=== PATIENT | female | born 1995 | race Hispanic/Latino ===

== ENCOUNTER 2016-11-06 10:21 | Emergency (ER) | payer OTHER ==
[~2016-11-06] VITALS: Ht 165.1 cm; Wt 98.3 kg
[2016-11-06 10:22] VITALS: BP 152/76
[2016-11-06] MEDS ORDERED: PRE-TAB3 PO (10:45)
[2016-11-06] MEDS ORDERED: CLEO300C2 PO (11:21)
[2016-11-06] MEDS ORDERED: CLINDAMYCIN 150 MG CAP PO ONE (11:30)
[2016-11-06] MEDS ORDERED: IBUPROFEN 600 MG TAB PO ONE (11:30)
== END 2016-11-06 11:31 | disposition home or self-care (01) ==
LOC: M ED 11:20
DX: H65.192 Other acute nonsuppurative otitis media, left ear (principal)

== ENCOUNTER → 2017-06-11 | Outpatient (REF) | payer OTHER ==
[2017-06-11 21:50] LABS: APPEARANCE, URINE TURBID (CLEAR); BACTERIA, URINE AUTO 3+ (NEGATIVE); BILIRUBIN, URINE AUTO NEGATIVE (NEGATIVE); BLOOD, URINE BLOOD 3+ (NEGATIVE); COLOR, URINE YELLOW (YELLOW); GLUCOSE, URINE (UA) AUTO NEGATIVE (NEGATIVE); KETONE, URINE AUTO NEGATIVE (NEGATIVE); LEUKOCYTE ESTERASE, URINE AUTO 3+ (NEGATIVE); NITRITE, URINE AUTO NEGATIVE (NEGATIVE); PROTEIN, URINE AUTO 2+ mg/dL (NEGATIVE); RBC, URINE AUTO TNTC /HPF (0-3); SQUAMOUS EPITHELIAL CELL UR AU 12 /HPF (0-6); UROBILINOGEN, URINE AUTO 0.2 mg/dL (0.0-2.0); WBC, URINE AUTO TNTC /HPF (0-3)
[2017-06-12 00:50] LABS: CHLAMYDIA DNA AMPLIFICATION POSITIVE (NEGATIVE); GC DNA AMPLIFICATION NEGATIVE (NEGATIVE)
== END ==
LOC: M LAB REF 06-12 09:24
DX: N39.0 Urinary tract infection, site not specified (principal)
CPT/HCPCS: 81001

== ENCOUNTER → 2017-06-12 | Outpatient (CLI) | payer OTHER | LOC: M LRY 15:05 | DX: R10.9 Unspecified abdominal pain (principal) | CPT/HCPCS: 74018; G0463 ==

== ENCOUNTER 2017-06-25 11:30 | Emergency (ER) | payer OTHER ==
[2017-06-25] MEDS: cefTRIAXone SOD 250 MG VIAL (J0696) IM (12:42)
[2017-06-25] MEDS: DOXYCYCLINE HYCLATE 100 MG TAB PO (12:42)
== END 2017-06-25 13:11 | disposition home or self-care (01) ==
LOC: M ED 11:30
DX: Z20.2 Contact with and (suspected) exposure to infections with a predominantly sexual mode of transmission (principal); Z88.0 Allergy status to penicillin
CPT/HCPCS: J0696

== ENCOUNTER → 2017-06-25 | Outpatient (CLI) | payer OTHER | LOC: M LAB 15:48 | DX: Z20.2 Contact with and (suspected) exposure to infections with a predominantly sexual mode of transmission (principal) ==

== ENCOUNTER → 2017-08-08 | Outpatient (REF) | payer OTHER ==
[2017-08-08 14:00] LABS: APPEARANCE, URINE CLOUDY (CLEAR); BACTERIA, URINE AUTO 1+ (NEGATIVE); BILIRUBIN, URINE AUTO NEGATIVE (NEGATIVE); BLOOD, URINE BLOOD NEGATIVE (NEGATIVE); COLOR, URINE YELLOW (YELLOW); GLUCOSE, URINE (UA) AUTO NEGATIVE (NEGATIVE); KETONE, URINE AUTO NEGATIVE (NEGATIVE); LEUKOCYTE ESTERASE, URINE AUTO 1+ (NEGATIVE); MUCUS, URINE SMALL (NEGATIVE); NITRITE, URINE AUTO NEGATIVE (NEGATIVE); PROTEIN, URINE AUTO NEGATIVE (NEGATIVE); RBC, URINE AUTO 1 /HPF (0-3); SPECIFIC GRAVITY URINE AUTO 1.013 (1.002-1.035); SQUAMOUS EPITHELIAL CELL UR AU 17 /HPF (0-6); UROBILINOGEN, URINE AUTO 0.2 mg/dL (0.0-2.0); WBC, URINE AUTO 6 /HPF (0-3)
[2017-08-08 15:19] LABS: CHLAMYDIA DNA AMPLIFICATION NEGATIVE (NEGATIVE); GC DNA AMPLIFICATION NEGATIVE (NEGATIVE)
== END ==
LOC: M LAB REF 12:35
DX: N39.0 Urinary tract infection, site not specified (principal)

== ENCOUNTER 2017-09-20 09:56 | Emergency (ER) | payer OTHER ==
[2017-09-20 13:14] LABS: CHLAMYDIA DNA AMPLIFICATION NEGATIVE (NEGATIVE); GC DNA AMPLIFICATION NEGATIVE (NEGATIVE)
== END 2017-09-20 11:09 | disposition home or self-care (01) ==
LOC: M ED 09:56
DX: R21 Rash and other nonspecific skin eruption (principal); Z88.0 Allergy status to penicillin
CPT/HCPCS: 86780

== ENCOUNTER → 2017-09-23 | Outpatient (CLI) | payer OTHER ==
[~2017-09-23] MED LIST: ISOVUE-370 76% 100ML VIAL (Q9967) As Ordered
== END ==
LOC: M RADPRO 10:02
DX: N97.9 Female infertility, unspecified (principal); Z53.8 Procedure and treatment not carried out for other reasons

== ENCOUNTER 2017-11-01 08:52 | Day surgery (SDC) | payer OTHER ==
[2017-11-01] MEDS ORDERED: LIDOCAINE 1% MDV 20ML VIAL SQ (09:00)
[2017-11-01 09:27] LABS: HEMATOCRIT 38.7 % (36.0-47.0); HEMOGLOBIN 13.2 g/dl (12.0-15.5); MEAN CORPUSCULAR HEMOGLOBIN 29.1 pg (27.0-33.0); MEAN CORPUSCULAR HGB CONC 34.1 g/dl (32.0-36.5); MEAN CORPUSCULAR VOLUME 85.2 fl (80.0-96.0); PLATELET COUNT, AUTOMATED 259 10^3/uL (150-450); RED BLOOD COUNT 4.54 10^6/uL (4.00-5.40); RED CELL DISTRIBUTION WIDTH 11.7 % (11.5-14.5); WHITE BLOOD COUNT 4.9 10^3/uL (4.0-10.0)
[2017-11-01] MEDS: LR 1,000 ML IV (09:44)
[2017-11-01 09:49] LABS: HCG, SERUM QUANTITATIVE < 1.0 MIU/ML
[2017-11-01] MEDS ORDERED: PROPOFOL 200 MG/20 ML VIAL As Ordered (10:02)
[2017-11-01] MEDS ORDERED: MIDAZOLAM INJ 2 MG/2 ML VIAL (J2250) As Ordered (10:02)
[2017-11-01] MEDS ORDERED: fentaNYL 100 MCG/2 ML INJECTION (J3010) As Ordered ×3 (10:02→13:53)
[2017-11-01] MEDS ORDERED: ROCURONIUM BROMIDE 50 MG/5 ML VIAL As Ordered (10:02)
[2017-11-01] MEDS ORDERED: LIDOCAINE 2% INJ 100 MG/5 ML SDV (FOR ANES.) As Ordered (10:02)
[2017-11-01] MEDS ORDERED: GLYCOPYRROLATE INJ 0.2 MG/ML 2 ML VIAL As Ordered (10:22)
[2017-11-01] MEDS ORDERED: ONDANSETRON 4MG/2ML VIAL (J2405) As Ordered (10:22)
[2017-11-01] MEDS ORDERED: NEOSTIGMINE 10 MG/10 ML VIAL (J2710) As Ordered (10:22)
[2017-11-01] MEDS ORDERED: dexameTHASONE 4 MG/ML 1ML VIAL (J1100) As Ordered ×2 (10:22)
[2017-11-01] MEDS ORDERED: METOCLOPRAMIDE INJ 10MG/2ML VIAL (J2765) As Ordered (10:42)
[2017-11-01] MEDS ORDERED: ePHEDrine SULFATE 25 MG/5 ML(5MG/ML) SYRINGE As Ordered (11:13)
[2017-11-01] MEDS ORDERED: KETOROLAC 60 MG/2 ML VIAL (J1885) As Ordered (13:56)
[2017-11-01] MEDS: BUPIVACAINE HCL 0.25% 30 ML VIAL As Ordered (14:11)
[2017-11-01] MEDS: METHYLENE BLUE 0.5% (5MG/ML) 10 ML AMP (PROVAYBLUE)(Q9968 PER 1MG) As Ordered (14:12)
[2017-11-01] MEDS ORDERED: LR 1,000 ML IV (14:45)
[2017-11-01] MEDS ORDERED: ONDANSETRON 4MG/2ML VIAL (J2405) IV (14:45)
[2017-11-01] MEDS ORDERED: MORPHINE 4 MG/ML 1ML VIAL/SYRINGE (J2270) IV (14:45)
[2017-11-01] MEDS ORDERED: fentaNYL 100 MCG/2 ML INJECTION (J3010) IV (14:45)
[2017-11-01] MEDS: PERCOCET 5MG/325MG TAB PO ×2 (14:55→15:25)
[2017-11-01] MEDS: ONDANSETRON 4MG/2ML VIAL (J2405) IV (16:27)
[2017-11-01] MEDS ORDERED: KETOROLAC 30 MG/ML VIAL (J1885) IV (20:15)
== END 2017-11-01 18:30 | disposition home or self-care (01) ==
LOC: M SDC 08:52
DX: N97.9 Female infertility, unspecified (principal); E28.2 Polycystic ovarian syndrome; E66.9 Obesity, unspecified
CPT/HCPCS: 58350

== ENCOUNTER → 2017-11-29 | Outpatient (REF) | payer OTHER | LOC: M SFHCLERA 16:51 | DX: R30.0 Dysuria (principal) ==

== ENCOUNTER 2018-01-22 12:04 | Emergency (ER) | payer OTHER ==
[2018-01-22 12:43] LABS: KETONE, URINE AUTO RFX TRACE mg/dL (NEGATIVE); LEUKOCYTE ESTERASE UR AUTO RFX 3+ (NEGATIVE); MUCUS, URINE RFX SMALL (NEGATIVE); NITRITE, URINE AUTO RFX NEGATIVE (NEGATIVE); RBC, URINE AUTO RFX TNTC /HPF (0-3); SQUAM EPITHELIAL CELL UR AURFX 3 /HPF (0-6); TRANSITIONAL EPITHELIAL AU RFX 1 /HPF; WBC, URINE AUTO RFX TNTC /HPF (0-3)
[2018-01-22] MEDS: NITROFURANTOIN (MACROBID) 100 MG CAP PO (12:55)
[2018-01-22] MEDS: ACETAMINOPHEN 325 MG TAB PO (12:55)
[2018-01-22 12:59] LABS: BASO % 0.2 % (0.0-1.0); EOS # 0.2 10^3/uL (0.0-0.50); HEMATOCRIT 39.4 % (36.0-47.0); HEMOGLOBIN 13.5 g/dl (12.0-15.5); IMMATURE GRANULOCYTE % 0.5 % (0-3.0); LYMPH # 3.1 10^3/uL (1.5-6.5); LYMPH % 18.9 % (24.0-44.0); MEAN CORPUSCULAR HEMOGLOBIN 29.8 pg (27.0-33.0); MEAN CORPUSCULAR HGB CONC 34.3 g/dl (32.0-36.5); MONO # 0.8 10^3/uL (0.0-0.8); MONO % 5.1 % (0.0-5.0); NEUTROPHILS # 12.1 10^3/uL (1.8-7.7); NEUTROPHILS % 74.3 % (36.0-66.0); PLATELET COUNT, AUTOMATED 294 10^3/uL (150-450); RED BLOOD COUNT 4.53 10^6/uL (4.00-5.40); RED CELL DISTRIBUTION WIDTH 12.4 % (11.5-14.5); WHITE BLOOD COUNT 16.2 10^3/uL (4.0-10.0)
[2018-01-22 13:40] LABS: HCG, SERUM QUANTITATIVE 7298 MIU/ML
== END 2018-01-22 14:30 | disposition home or self-care (01) ==
LOC: M ED 12:04
DX: O20.0 Threatened abortion (principal); O23.40 Unspecified infection of urinary tract in pregnancy, unspecified trimester; Z3A.01 Less than 8 weeks gestation of pregnancy; Z79.899 Other long term (current) drug therapy; Z88.0 Allergy status to penicillin
CPT/HCPCS: 76801

== ENCOUNTER → 2018-01-25 | Outpatient (CLI) | payer OTHER | LOC: M RAD 09:30 | DX: O20.8 Other hemorrhage in early pregnancy (principal); Z3A.01 Less than 8 weeks gestation of pregnancy; N83.201 Unspecified ovarian cyst, right side; O34.81 Maternal care for other abnormalities of pelvic organs, first trimester | CPT/HCPCS: 76801 ==

== ENCOUNTER 2018-07-13 11:03 | Emergency (ER) | payer OTHER ==
[~2018-07-13] VITALS: Ht 165.1 cm; Wt 97.3 kg
[~2018-07-13 11:03] MED LIST changes: +ACET1TAB55; +CLEO300C2 PO; +COQ1200C2 PO; +DOXY100C37 PO; +HYDR25OI TOP; -ISOVUE-370 76% 100ML VIAL (Q9967) As Ordered; +MACR100C43 PO; +METF500T4; +OMEG1CAP16 PO; +PRE-TAB3 PO; +PRED5TA; +PREN1CHW6 PO; +VITA100067 PO
[2018-07-13] MEDS ORDERED: FAMOTIDINE 20 MG TAB PO ONE (12:30)
[2018-07-13] MEDS ORDERED: diphenhydrAMINE 25 MG CAP PO ONE (12:30)
[2018-07-13] MEDS ORDERED: BENA25CA4 PO (12:40)
[2018-07-13] MEDS ORDERED: PEPC1TAB5 PO (12:40)
[2018-07-13 12:44] VITALS: BP 100/63
== END 2018-07-13 12:48 | disposition home or self-care (01) ==
LOC: M ED 11:03
DX: O99.89 Other specified diseases and conditions complicating pregnancy, childbirth and the puerperium (principal); L50.9 Urticaria, unspecified; Z3A.30 30 weeks gestation of pregnancy; Z79.899 Other long term (current) drug therapy; Z88.0 Allergy status to penicillin

== ENCOUNTER 2018-08-28 08:07 | Outpatient (CLI) | payer OTHER ==
[~2018-08-28] VITALS: Ht 165.1 cm; Wt 102.0 kg
[~2018-08-28 08:07] MED LIST changes: +BENA25CA4 PO; +PEPC1TAB5 PO
[2018-08-28 08:23] VITALS: BP 127/61
[2018-08-28 08:38] VITALS: BP 129/67
[2018-08-28 09:13] VITALS: BP 122/60
--- NOTE | 2018-08-28 09:38 | IPNPDOC ---
Text Note Date of Service The patient was seen on 08/28/18. NOTE 23 yo at 37+0 weeks presented to L+D with the complaint of vaginal spotting/bleeding after having intercourse at 0500 this AM. She denies any leakage of fluid. She also reports feeling intermittent contractions but nothing too significant. She initially wasn't feeling her baby move as much as usual this AM but while in triage she reported significant movement. Chaperoned by L&D RN Vitals - VSS, afebrile, normotensive, non tachycardic General - AAOX3, laying in bed, NAD Abdomen - Gravid uterus. No fundal tenderness. Pelvic exam - Speculum placed into the vagina. Scant brown blood in vaginal vault. No active bleeding. Cervix visualized and normal in appearance. No bleeding from cervix and no trauma. Cervix - 50/-3. Posterior Bedside TAUS - SIUP in cephalic presentation. HARSHAL 9.2cm. +gross movement. FHR tracing - Reactive NST, moderate variability, +accels, no decels. Suspect spotting and blood related to intercourse this AM. No active bleeding on exam. No evidence of active labor and cervix 1cm. No evidence of ruptured membranes. Reassuring status. Patient felt a lot of movement in triage and was reassured. Counseled patient she may continue to have discharge and cramping over next several hours or days. She is to return to care for worsening painful ctx, bleeding that soaks through multiple pads, leakage of fluid, or decreased movement. All patient questions answered. DO DEBRA Bingham Fishbone, I+O Ghazala RICHARDSON, I+O Vital Signs Date Time Temp Pulse Resp B/P (MAP) Pulse Ox O2 Delivery O2 Flow Rate FiO2 08/28/18 08:23 98.3 100 18 127/61 (83) JENA BINGHAM DO Aug 28, 2018 09:19
== END 2018-08-28 09:28 | disposition home or self-care (01) ==
LOC: M LDO 08:07
PROVIDERS: ATTEND Obstetrics & Gynecology
DX: O36.8130 Decreased fetal movements, third trimester, not applicable or unspecified (principal); O26.853 Spotting complicating pregnancy, third trimester; O47.1 False labor at or after 37 completed weeks of gestation; Z3A.37 37 weeks gestation of pregnancy
CPT/HCPCS: 59025; 76815; G0378; G0463

== ENCOUNTER 2018-09-07 08:14 | Inpatient (IN) | payer OTHER ==
[2018-09-07] VITALS (12 sets, daily range): BP systolic 116–149; BP diastolic 56–82
[~2018-09-07] VITALS: Ht 165.1 cm; Wt 101.3 kg
[2018-09-07] MEDS ORDERED: LACTATED RINGER'S 1000 ML IV STA (08:51)
[2018-09-07 09:03] LABS: BASO % 0.2 % (0.0-1.0); EOS # 0.1 10^3/uL (0.0-0.50); EOS % 0.8 % (0.0-3.0); HEMATOCRIT 41.9 % (36.0-47.0); HEMOGLOBIN 14.4 g/dl (12.0-15.5); LYMPH # 1.7 10^3/uL (1.5-6.5); MEAN CORPUSCULAR HEMOGLOBIN 30.6 pg (27.0-33.0); MEAN CORPUSCULAR HGB CONC 34.4 g/dl (32.0-36.5); MONO # 0.7 10^3/uL (0.0-0.8); MONO % 7.3 % (0.0-5.0); NEUTROPHILS # 7.2 10^3/uL (1.8-7.7); PLATELET COUNT, AUTOMATED 195 10^3/uL (150-450); RED BLOOD COUNT 4.71 10^6/uL (4.00-5.40); WHITE BLOOD COUNT 9.7 10^3/uL (4.0-10.0)
[2018-09-07] MEDS ORDERED: FENTANYL 2MCG/ML ROPIVACAINE 0.2% IN 0.9% NACL 100ML IVBAG As Ordered ONE (09:20)
[2018-09-07] MEDS ORDERED: OXYTOCIN 30 UNITS IN 0.9% NaCl 500ML IV BAG (J2590) As Ordered ONE ×2 (09:20→10:22)
[2018-09-07] MEDS: OXYTOCIN DRIP 30 UNITS in APPROPRIATE DILUENT 1 EA IV SCH ×2 (09:40→10:24)
[2018-09-07] MEDS ORDERED: MEASLES,MUMPS,RUBELLA VACCINE INJ (MMR-II) (90707) SC SCH (10:00)
[2018-09-07] MEDS ORDERED: METHYLERGONOVINE MALEATE 0.2 MG TAB PO PRN (10:00)
[2018-09-07] MEDS ORDERED: DOCUSATE SODIUM 100 MG CAP PO PRN (10:00)
[2018-09-07] MEDS ORDERED: ACETAMINOPHEN 500 MG TAB PO PRN (10:00)
[2018-09-07] MEDS ORDERED: ONDANSETRON 4MG/2ML VIAL (J2405) IV PRN (10:00)
[2018-09-07] MEDS ORDERED: DIBUCAINE 1% OINTMENT 30GM TOP PRN (10:00)
--- NOTE | 2018-09-07 10:03 | NUR ---
[facility] L&D Delivery Note: Received call in clinic from nursing staff. Reported precipitous delivery and on-call provider delivering another patient. RN reported baby delivered and care managed by Ms. Lakeisha Reich, RN; requesting provider to bedside. When I entered the room. Mom/babe were in stable condition bonding. Active management of the 3rd stage by CNM. With gentle traction on 3Vcord, placenta delivered intact Seamus and was complete and intact on inspection. Oxytocin bolus via IV and FF @U-3;w/ small rubra lochia. Vagina, perineum, and cervix inspected for lacerations. None present. Counts completed and correct x2. Mom/babe in stable condition upon leaving the room. DEL: 0931 PLACENTA: 0940 APGARS: 7/9 WT: 3340 EBL: 300 ANESTHESIA: None
[2018-09-07] MEDS ORDERED: METHYLERGONOVINE MALEATE 0.2 MG/ML VIAL (J2210) As Ordered ONE (10:29)
[2018-09-07] MEDS ORDERED: METHYLERGONOVINE MALEATE 0.2 MG/ML VIAL (J2210) IM ONE (10:30)
[2018-09-07] MEDS ORDERED: OXYTOCIN DRIP 30 UNITS in APPROPRIATE DILUENT 1 EA IV ONE (10:45)
--- NOTE | 2018-09-07 11:29 | IPNPDOC ---
Text Note Date of Service The patient was seen on 09/07/18. NOTE Called to room for persistent oozing bleeding after delivery. I had previously ordered another bag of pitocin and 0.2mg IM metherine. Pelvic exam revealed no vaginal, perineal, or labial lacerations. Cervix inspected with speculum and intact without lacerations. Fundus firm. Uterine sweep performed productive of ~200ml of blood and clots. Bedside TAUS revealed a thin EMS without any evidence of retained products. Will give ancef for uterine sweep. Patient stable with now normal lochia. Continue to monitor. DO Zachery VS,Ghazala, I+O VS, Ghazala, I+O Laboratory Tests 09/07/18 08:32 Red Blood Count 4.71, Mean Corpuscular Volume 89.0, Mean Corpuscular Hemoglobin 30.6, Mean Corpuscular Hemoglobin Concent 34.4, Red Cell Distribution Width 13.1, Neutrophils (%) (Auto) 74.0 H, Lymphocytes (%) (Auto) 17.0 L, Monocytes (%) (Auto) 7.3 H, Eosinophils (%) (Auto) 0.8, Basophils (%) (Auto) 0.2, Neutrophils # (Auto) 7.2, Lymphocytes # (Auto) 1.7, Monocytes # (Auto) 0.7, Eosinophils # (Auto) 0.1, Basophils # (Auto) 0.0 Vital Signs Date Time Temp Pulse Resp B/P (MAP) Pulse Ox O2 Delivery O2 Flow Rate FiO2 09/07/18 10:36 75 18 118/59 (78) 09/07/18 08:26 98.6 JENA HANKINS DO Sep 07, 2018 11:29
--- NOTE | 2018-09-07 14:44 | HPEPDOC ---
Obstetrical History & Physical General Date of Admission Sep 07, 2018 at 08:55 History of Present Illness 23 yo at 38+3 weeks gestation presented to L&D in active labor. No leakage of fluid or bleeding. Excellent movement. complicated by obesity (BMI 37) and GDMA1, with good control. Chief Complaint: Contractions, term Information Provided By: Patient Age: 23 : 2 Term: 1 Pre-term: 0 Abortions: 0 Livin Care Care: Good Care Dating Final EDC: Sep 18, 2018 Final EDC for Daily Update: Sep 18, 2018 (by LMP of [id number] c/w 9+2 week US on [id number]) LMP: Dec 12, 2017 Antepartum Course Diagnos(e)s GDMA1 Obesity Past Medical History Past Obstetrical History : Past Obstetrical History: Multigravida Type of Delivery: Spontaneous Vaginal Del. (term in 2010) Complications: No CABINET MOUNTER History: History of STD (chlamydia X2) Past Medical History Medical History Obesity PCOS Surgical History: Diagnostic laparoscopy, [place] teeth Family History Family History Noncontributory Social History Marital Status: Family situation: Spouse/partner home Psychosocial History: No pertinent psych hx * Smoker: non-smoker Alcohol: Denies Drugs: denies Imunizations Tdap status: current Influenza Status: current Allergies Coded Allergies: Penicillins (Verified Allergy, Mild, RASH, 09/07/18) Medications Scheduled Multivitamins/ (Prenata 29-1 mg) 1 Chw Chw, 1 CHW PO DAILY Physical Examination Physical Examination GENERAL: Alert and oriented times three. ABDOMEN: Gravid and non-tender to touch. FETUS: Is vertex (VTX) by sterile vaginal examination (SVE), EXTREMITIES: No edema. Vital Signs/I&O Vital Signs Date Time Temp Pulse Resp B/P (MAP) Pulse Ox O2 Delivery O2 Flow Rate FiO2 09/07/18 13:30 98.7 111 20 130/69 (89) Laboratory Data 24H LABS Laboratory Tests 2 09/07/18 08:32: Immature Granulocyte % (Auto) 0.7, White Blood Count 9.7, Red Blood Count 4.71, Hemoglobin 14.4, Hematocrit 41.9, Mean Corpuscular Volume 89.0, Mean Corpuscular Hemoglobin 30.6, Mean Corpuscular Hemoglobin Concent 34.4, Red Cell Distribution Width 13.1, Platelet Count 195, Neutrophils (%) (Auto) 74.0H, Lymphocytes (%) (Auto) 17.0L, Monocytes (%) (Auto) 7.3H, Eosinophils (%) (Auto) 0.8, Basophils (%) (Auto) 0.2, Neutrophils # (Auto) 7.2, Lymphocytes # (Auto) 1.7, Monocytes # (Auto) 0.7, Eosinophils # (Auto) 0.1, Basophils # (Auto) 0.0, Nucleated Red Blood Cells % (auto) 0.0 09/07/18 08:59: Serology Scanned Report Hepatitis B Testing 09/07/18 09:06: Bedside Glucose (Misc Panel) 81 CBC/BMP Laboratory Tests 09/07/18 08:32 Red Blood Count 4.71, Mean Corpuscular Volume 89.0, Mean Corpuscular Hemoglobin 30.6, Mean Corpuscular Hemoglobin Concent 34.4, Red Cell Distribution Width 13.1, Neutrophils (%) (Auto) 74.0 H, Lymphocytes (%) (Auto) 17.0 L, Monocytes (%) (Auto) 7.3 H, Eosinophils (%) (Auto) 0.8, Basophils (%) (Auto) 0.2, Neutrophils # (Auto) 7.2, Lymphocytes # (Auto) 1.7, Monocytes # (Auto) 0.7, Eosinophils # (Auto) 0.1, Basophils # (Auto) 0.0 Urine Culture: No Growth Pertinent Laboratoy Data Blood Type: B+ RBC Antibody Screen: Negative HIV: Negative Hepatitis B: Negative Hepatitis C: Unknown Rapid Plasma Reagin: Nonreactive Rubella: Immune Varicella: Immune Chlamydia/Gonorrhea: Negative Group B Streptococcus: Negative Quad Screen Test: Unknown Cystic Fibrosis: Negative Glucose Tolerance Test: 147 Anatomy Ultrasound Placenta Location: Right Lateral Normal Anatomy: No Placenta Previa: No Steroid Therapy Steroid Therapy: No Vaginal Examination Dilation: 6 cm Effacement: 100% Station: 0 Cervical Consistency: Soft Cervical Position: Anterior Presentation: Cephalic presentation Position: Vertex (occiput) Assessment Heart Rate (FHR): 130 Variability: Moderate Accelerations: Positive Decelerations: None Tocometer Contractions: Yes Frequency: regular Duration: greater than 60 seconds Strength: palpated as strong Assessment/Plan Assessment 23 yo presented in active labor at 38+3 weeks. Delivered precipitously while I was delivering a different patient in another room. CNM MAJ Armendariz attended 3rd stage of delivery and reported no complications. Plan Routine care now that she is s/p precipitous delivery. Much appreciate MAJ Armendariz's quick arrival to attend 3rd stage of delivery. DO CR Bingham CHRISTOPHER J. DO Sep 07, 2018 14:44
[2018-09-07] MEDS: IBUPROFEN 800 MG TAB PO PRN (17:54)
[2018-09-08 06:16] VITALS: BP 117/59
--- NOTE | 2018-09-08 07:29 | DS.PDOC ---
Discharge Summary General Date of Admission Sep 07, 2018 at 08:55 Date of Discharge Sep 08, 2018 Discharge Summary HOSPITAL COURSE: Ms. Foreman is a 23 yo G2 now P2 who underwent an uncomplicated on 07Sep2018 after being admitted for active labor. She required a uterine sweep for some retained clots and received a dose of ancef. Otherwise her course has been unremarkable. On her day of discharge she met all appropriate discharge criteria. She was ambulating, voiding, tolerating a regular diet, and her pain was well controlled, and she had minimal lochia. DISCHARGE MEDICATIONS: Please see below. ALLERGIES: Please see below. PHYSICAL EXAMINATION ON DISCHARGE: VITAL SIGNS: Please see below. GENERAL: AAOX3, sitting up in bed, NAD ABDOMINAL EXAMINATION: Fundus firm at U-2. No fundal tenderness. EXTREMITIES: No edema PSYCHIATRIC EXAMINATION: Affect appropriate LABORATORY DATA: Please see below. ACTIVITY: Pelvic rest. DIET: Regular DISCHARGE PLAN: Discharge DISPOSITION: discharge to home on 08Sep2018. DISCHARGE INSTRUCTIONS: 1. Pelvic rest for 6 weeks. ITEMS TO FOLLOWUP ON ON OUTPATIENT: 1. appointment in 6-8 weeks. DISCHARGE CONDITION: Stable. TIME SPENT ON DISCHARGE: Greater than 20 minutes. Jena Bingham, Vital Signs/I&Os Vital Signs Date Time Temp Pulse Resp B/P (MAP) Pulse Ox O2 Delivery O2 Flow Rate FiO2 09/08/18 06:16 98.8 84 18 117/59 (78) 09/07/18 18:00 97 I&O- Last 24 Hours up to 6 AM 09/08/18 06:00 Intake Total 1737 ml Output Total 900 ml Balance 837 ml Laboratory Data Labs 24H Laboratory Tests 2 09/07/18 08:32: Immature Granulocyte % (Auto) 0.7, White Blood Count 9.7, Red Blood Count 4.71, Hemoglobin 14.4, Hematocrit 41.9, Mean Corpuscular Volume 89.0, Mean Corpuscular Hemoglobin 30.6, Mean Corpuscular Hemoglobin Concent 34.4, Red Cell Distribution Width 13.1, Platelet Count 195, Neutrophils (%) (Auto) 74.0H, Lymphocytes (%) (Auto) 17.0L, Monocytes (%) (Auto) 7.3H, Eosinophils (%) (Auto) 0.8, Basophils (%) (Auto) 0.2, Neutrophils # (Auto) 7.2, Lymphocytes # (Auto) 1.7, Monocytes # (Auto) 0.7, Eosinophils # (Auto) 0.1, Basophils # (Auto) 0.0, Nucleated Red Blood Cells % (auto) 0.0 09/07/18 08:59: Serology Scanned Report Hepatitis B Testing 09/07/18 09:06: Bedside Glucose (Misc Panel) 81 CBC/BMP Laboratory Tests 09/07/18 08:32 Red Blood Count 4.71, Mean Corpuscular Volume 89.0, Mean Corpuscular Hemoglobin 30.6, Mean Corpuscular Hemoglobin Concent 34.4, Red Cell Distribution Width 13.1, Neutrophils (%) (Auto) 74.0 H, Lymphocytes (%) (Auto) 17.0 L, Monocytes (%) (Auto) 7.3 H, Eosinophils (%) (Auto) 0.8, Basophils (%) (Auto) 0.2, Neutrophils # (Auto) 7.2, Lymphocytes # (Auto) 1.7, Monocytes # (Auto) 0.7, Eosinophils # (Auto) 0.1, Basophils # (Auto) 0.0 FSBS Laboratory Tests Test 09/07/18 09:06 Range/Units Bedside Glucose (Misc Panel) 81 70-105 MG/DL Discharge Medications Scheduled Multivitamins/ (Prenata 29-1 mg) 1 Chw Chw, 1 CHW PO DAILY, (Reported) Allergies Coded Allergies: Penicillins (Verified Allergy, Mild, RASH, 09/07/18) JENA BINGHAM DO Sep 08, 2018 07:29
[2018-09-08] MEDS: IBUPROFEN 800 MG TAB PO PRN (07:35)
[2018-09-08] MEDS ORDERED: MAPA500T2 PO (08:29)
[2018-09-08] MEDS ORDERED: IBUP-1114 PO (08:29)
[2018-09-08] MEDS ORDERED: NUPE1OIN2 TOP (08:29)
[2018-09-08] MEDS ORDERED: COLA100C5 PO (08:29)
[2018-09-08] MEDS ORDERED: PRENATAL VITAMINS CHEWABLE TABLET PO SCH (09:00)
== END 2018-09-08 15:15 | disposition home or self-care (01) | DRG 807 ==
LOC: M LDO 08:14 → M LDI 08:55 → M OBS 13:25
PROVIDERS: ADMIT Obstetrics & Gynecology; ATTEND Obstetrics & Gynecology
PROC: 10E0XZZ Delivery of Products of Conception, External Approach (ICD-10-PCS; principal; 2018-09-07)
DX: O24.420 Gestational diabetes mellitus in childbirth, diet controlled (principal); Z37.0 Single live birth; O99.214 Obesity complicating childbirth; E66.9 Obesity, unspecified; E28.2 Polycystic ovarian syndrome; O62.3 Precipitate labor; O99.284 Endocrine, nutritional and metabolic diseases complicating childbirth; Z3A.38 38 weeks gestation of pregnancy